=== PATIENT | female | born 1965 | race Caucasian/White ===

== ENCOUNTER 2018-04-10 18:53 | Observation (INO) ==
[2018-04-10] MEDS ORDERED: Acetaminophen 325 MG Tablet PO PRN (23:29)
--- NOTE | 2018-04-10 23:35 | P.HPIM ---
History of Present Illness Primary Care Physician: UNKNOWN History of Present Illness: 52-year-old female with a history of anxiety, bipolar, chronic osteomyelitis left ankle, MRSA, DVT, hypertension and multiple admissions of altered mental status was a transfer from [facility] for further evaluation of recurrent encephalopathy. Admitted on 04/09/18. According to the [place] records patient was at her local half-way and staff found her crawling on the floor in her own feces and urine. She was uncooperative and combative at this time and was sent to the ER. Prior to arrival had the ED she was found with syringes in her purse at the local half-way. CT of the head was completed and revealed mild sinus, no acute abnormalities. She is currently being treated for chronic osteomyelitis to the left ankle for 6 weeks of antibiotics that is due to and on 04/25/18 and she is being treated with vancomycin and cefepime. On admission patient's labs WBC 5.3, sodium 152, potassium 4.3, chloride 1 CO2 15, BUN 9, glucose 139, troponin 0.01, urine tox screens positive for oxycodone, alcohol level less than 1. UA negative. Upon examination she is oriented x 3, states she is given oxycodone from the half-way for pain for her recently diagnosed DVT in right upper extremity. She does not know why she was brought to the ED, she thought it was due to the dvt. She denies any chest pain, sob, fever or chills. Inpatient Certification: I certify that the inpatient services were ordered in accordance with Medicare regulations governing the order. This includes certification that hospital inpatient services are reasonable and necessary and in the case of services not specified as inpatient-only under 42 CFR 419.22(n), that they are appropriately provided as inpatient services in accordance to with the 2-midnight benchmark under 43 CFR 412.3(e) Estimated Total Length of Stay (Days): 2 Plans for Post Hospital Care: [facility] - Medical History Medical History: Medical History (Last Reviewed 04/11/18 @ 01:37 by POP Farrell) Anxiety Bipolar 1 disorder DVT (deep venous thrombosis) Osteomyelitis - Surgical History Surgical History: Surgical History (Last Reviewed 04/11/18 @ 01:36 by POP Farrell) History of appendectomy History of cholecystectomy History of nephrectomy - Family History Family History: Family History (Last Reviewed 04/11/18 @ 01:37 by POP Farrell) Grandparent Psychiatric diagnosis Medications and Allergies Allergies Allergy/AdvReac Type Severity Reaction Status Date / Time heparin Allergy Itching Verified 04/10/18 23:36 morphine Allergy Anaphylaxis Verified 04/10/18 23:36 Exam Vital signs: Intake & Output 04/10/18 04/10/18 04/11/18 06:59 18:59 06:59 Weight 66.7 kg Other: Weight On Admission 66.7 kg Narrative: GENERAL: This is a well-nourished, well-developed patient, in no apparent distress. CARDIOVASCULAR: Regular rate and rhythm without murmurs, gallops, or rubs. RESPIRATORY: Clear to auscultation. Breath sounds equal bilaterally. No wheezes , rales, or rhonchi. GASTROINTESTINAL: Abdomen soft, non-tender, nondistended. Normal active bowel sounds MUSCULOSKELETAL: Extremities without clubbing, cyanosis, or edema. NEURO: Alert & Oriented x3 to person, place, time. Moves all ext x4 Results - Labs CBC & Chem 7: 04/11/18 01:29 04/11/18 01:29 Caprini VTE Risk Assessment Caprini VTE Risk Assessment: Moderate/High Risk (score >= 2) Caprini Risk Assessment Model: Point Value = 1 Point Value = 2 Point Value = 3 Point Value = 5 Age 41-60 Minor surgery BMI > 25 kg/m2 Swollen legs Varicose veins or History of unexplained or recurrent spontaneous Oral contraceptives or hormone replacement Sepsis (< 1 month) Serious lung disease, including pneumonia (< 1 month) Abnormal pulmonary function Acute myocardial infarction Congestive heart failure (< 1 month) History of inflammatory bowel disease Medical patient at bed rest Age 61-74 Arthroscopic surgery Major open surgery (> 45 min) Laparoscopic surgery (> 45 min) Malignancy Confined to bed (> 72 hours) Immobilizing plaster cast Central venous access Age >= 75 History of VTE Family history of VTE Factor V Leiden Prothrombin [id number] Lupus anticoagulant Anticardiolipin antibodies Elevated serum homocysteine Heparin-induced thrombocytopenia Other congenital or acquired thrombophilia Stroke (< 1 month) Elective arthroplasty Hip, pelvis, or leg fracture Acute spinal cord injury (< 1 month) Prophylaxis Regimen: Total Risk Factor Score Risk Level Prophylaxis Regimen 0-1 Low Early ambulation 2 Moderate Order ONE of the following: *Sequential Compression Device (SCD) *Heparin 5000 units SQ BID 3-4 Higher Order ONE of the following medications: *Heparin 5000 units SQ TID *Enoxaparin/Lovenox 40 mg SQ daily (WT < 150 kg, CrCl > 30 mL/min) *Enoxaparin/Lovenox 30 mg SQ daily (WT < 150 kg, CrCl > 10-29 mL/min) *Enoxaparin/Lovenox 30 mg SQ BID (WT < 150 kg, CrCl > 30 mL/min) AND/OR *Sequential Compression Device (SCD) 5 or more Highest Order ONE of the following medications: *Heparin 5000 units SQ TID (Preferred with Epidurals) *Enoxaparin/Lovenox 40 mg SQ daily (WT < 150 kg, CrCl > 30 mL/min) *Enoxaparin/Lovenox 30 mg SQ daily (WT < 150 kg, CrCl > 10-29 mL/min) *Enoxaparin/Lovenox 30 mg SQ BID (WT < 150 kg, CrCl > 30 mL/min) AND *Sequential Compression Device (SCD) Assessment and Plan - Plan 52-year-old female with a history of anxiety, bipolar, chronic osteomyelitis left ankle, MRSA, DVT, hypertension and multiple admissions of altered mental status was a transfer from [facility] for further evaluation of recurrent encephalopathy. Encephalopathy, acute, currently resolved Head CT reviewed and shows no acute abnormalities -MRI, EGG ordered -Consult neurology for evaluation -Neuro checks -PT eval Anxiety/bipolar -Resume home medications BuSpar -Consult psychiatry if needed Hypertension, chronic -Resume home amlodipine, monitor vitals Osteomyelitis, chronic -Continue IV vancomycin q16hrs with pharmacy consult and cefepime 2gm q12h until 04/25/18 DVT, recently diagnosed -Right upper extremity -Resume home eliquis -Tramadol for pain DVT prophylaxis: Isaac Discussed Condition With: Patient and RN
[2018-04-10] MEDS ORDERED: Vancomycin Consult Pharmacy OTHER PRN ×2 (23:45→23:55)
[2018-04-11] MEDS ORDERED: Vancomycin Inj 1 GM/200 ML PIGGYBACK IV.SIG SCH
[2018-04-11] MEDS ORDERED: Vancomycin Inj 1,750 MG in Sodium Chlor 0.9% Inj 500 ML IV.SIG ONE (01:00)
[2018-04-11] MEDS: Sod Chloride 0.9% Inj 1,000 ML IV.CONT SCH ×3 (01:41→20:36)
[2018-04-11 01:47] LABS: Baso # (Auto) 0.1 th/mm3 (0.0-0.2); Baso % (Auto) 1.9 % (0.0-2.0); Eos # (Auto) 0.1 th/mm3 (0.0-0.4); Eos % (Auto) 1.1 % (0.0-4.0); Hematocrit 26.6 % (35.0-46.0); Hemoglobin 8.2 gm/dL (11.6-15.3); Lymph # (Auto) 1.4 th/mm3 (1.0-4.8); Lymph % (Auto) 26.2 % (9.0-44.0); Mean Corpuscular Hemoglobin 23.6 pg (27.0-34.0); Mean Corpuscular Volume 76.9 fL (80.0-100.0); Mean Platelet Volume 8.3 fL (7.0-11.0); Mono # (Auto) 0.5 th/mm3 (0.0-0.9); Neut # (Auto) 3.1 th/mm3 (1.8-7.7); Neut % (Auto) 60.8 % (16.0-70.0); Platelet Count 187 th/mm3 (150-450); Red Blood Count 3.45 mil/mm3 (4.00-5.30); Red Cell Distribution Width 18.3 % (11.6-17.2); White Blood Count 5.2 th/mm3 (4.0-11.0)
[2018-04-11 01:50] LABS: Mean Corpuscular HGB Conc 30.7 % (32.0-36.0)
[2018-04-11 02:10] LABS: Anion Gap 12 meq/L (5-15); Blood Urea Nitrogen 6 mg/dL (7-18); Calcium 8.4 mg/dL (8.5-10.1); Carbon Dioxide 22.5 meq/L (21.0-32.0); Chloride 111 meq/L (98-107); Glomerular Filtration Rate Greater Than 89 mL/min (>89); Glucose,Random 86 mg/dL (74-106); Sodium 145 meq/L (136-145)
[2018-04-11 02:15] LABS: Potassium 2.9 meq/L (3.5-5.1)
[2018-04-11 08:28] LABS: Baso # (Auto) 0.1 th/mm3 (0.0-0.2); Baso % (Auto) 1.4 % (0.0-2.0); Eos # (Auto) 0.1 th/mm3 (0.0-0.4); Eos % (Auto) 2.3 % (0.0-4.0); Hemoglobin 8.2 gm/dL (11.6-15.3); Lymph # (Auto) 1.2 th/mm3 (1.0-4.8); Mean Corpuscular HGB Conc 31.7 % (32.0-36.0); Mean Corpuscular Hemoglobin 24.2 pg (27.0-34.0); Mean Corpuscular Volume 76.2 fL (80.0-100.0); Mean Platelet Volume 9.1 fL (7.0-11.0); Mono # (Auto) 0.5 th/mm3 (0.0-0.9); Mono % (Auto) 9.6 % (0.0-8.0); Neut # (Auto) 3.2 th/mm3 (1.8-7.7); Neut % (Auto) 63.7 % (16.0-70.0); Platelet Count 174 th/mm3 (150-450)
[2018-04-11] MEDS ORDERED: Potassium Chlor 20 mEq Premix 20 MEQ/100 ML PIGGYBACK IV.SIG ONE (09:00)
[2018-04-11 09:13] LABS: Albumin 3.2 g/dL (3.4-5.0); Anion Gap 9 meq/L (5-15); Aspartate Aminotransferase 22 U/L (15-37); Blood Urea Nitrogen 5 mg/dL (7-18); Calcium 8.7 mg/dL (8.5-10.1); Chloride 111 meq/L (98-107); Glomerular Filtration Rate Greater Than 89 mL/min (>89); Glucose,Random 77 mg/dL (74-106); Potassium 3.1 meq/L (3.5-5.1); Sodium 143 meq/L (136-145)
[2018-04-11 09:14] LABS: Alanine Aminotransferase 14 U/L (10-53)
[2018-04-11 09:16] LABS: Alkaline Phosphatase 92 U/L (45-117); Total Protein 7.3 g/dL (6.4-8.2)
[2018-04-11] MEDS: amLODIPine 10 MG Tablet PO SCH (09:24)
[2018-04-11 09:40] LABS: Platelet Estimate Normal (Normal); Platelet Morphology Clumped (Normal)
[2018-04-11] MEDS ORDERED: Magnesium Sulfate Inj 2 GM in Sodium Chlor 0.9% Inj 96 ML IV.SIG ONE (10:00)
[2018-04-11] MEDS ORDERED: Gadobutrol PF 7.5 MMOL/7.5 ML Vial (for RAD) IV.SIG ONE (10:07)
--- NOTE | 2018-04-11 10:16 | MB ---
cc: Marvin Mackenzie MD DATE: 04/11/2018 HISTORY OF PRESENT ILLNESS: A 52-year-old right-handed woman with a history of right kidney removal. Otherwise, she has been fairly healthy. She was over at [facility] with a history of generalized anxiety disorder, psych history. Past medical history of DVT, obesity, cholecystectomy, left nephrectomy, appendectomy, recurrent encephalopathy admitted for the third time in the past month change in mental status. Etiology was undetermined. She was at a correction. The staff found crawling on the floor in her own feces and urine earlier on 04/09/2018. She was uncooperative, combative, sent to the ER. She had some saline syringes found in her purse at [facility]. Urine drug screen only positive for the medication she has been taking. She was moaning, moving around in bed, would not engage in conversation that was meaningful. SHE WAS ALLERGIC TO MORPHINE AND HEPARIN. She does not take NSAIDS. She is not allergic, but she only has 1 kidney so tries to avoid those. She was moaning incoherently, intention tremors of the upper and lower extremities. She was being treated for possible osteomyelitis. She got Ativan in the ER. History of bipolar disorder, Crohn disease, osteomyelitis of left ankle 03/2018, brachial plexopathy of right upper extremity, rhabdomyolysis, listed as having a dementia. CT scan over at [facility] showed mild sinusitis, left ethmoid sinusitis. Her sodium was 152. Urine drug screen positive for oxycodone. She was noted to have a history of psychosis. History of MRSA is noted. It is unclear to me why she was transferred to [facility]. MEDICATIONS: She is on BuSpar 7.5 b.i.d., Eliquis 5 b.i.d., gabapentin 300 t.i.d., omeprazole, tramadol 100 q.6 hours p.r.n., amlodipine, cefepime, vancomycin, Florastor 250 b.i.d., Zoloft 50 a day. REVIEW OF SYSTEMS: The patient denied any hypertension, diabetes, hypercholesterolemia, ND, stent, angioplasty, AFib, Coumadin, hepatic or pulmonary disease, thyroid disease, lupus, ulcer, cancer, seizure, or stroke. SOCIAL HISTORY: She is not a smoker or drinker, lives with her mother. FAMILY HISTORY: Positive for cancer in her mother, negative for seizure or stroke. PAST MEDICAL HISTORY: As above. PHYSICAL EXAMINATION: VITAL SIGNS: Afebrile, 92, 156/93. She has not been running a fever here. NECK: There were no carotid bruits. HEART: Regular rate and rhythm. I did not detect a murmur. NEUROLOGIC: She is awake and alert. She knows the month and the year. Pupils are equal. Visual sterling are full. Extraocular movements intact without nystagmus. Face is symmetric with normal sensation. Tongue was midline. There is no drift. He had normal strength in upper and lower extremities bilaterally. DTRs are absent throughout. Toes withdrew bilaterally. Her tone is normal throughout. There is no ankle clonus. Pinprick is intact throughout bilateral upper and lower extremities and face. She is not ataxic on [id number]. Follows commands well. She has some scabs on her knee. She says that was from changing her bird cages at home. She denies a fall. She denies a headache. LABORATORY DATA: CBC shows anemia with hematocrit of 26, otherwise normal. Her BMP: Potassium of 3.1, otherwise the sodium down to 143. Creatinine is normal. LFTs normal. Albumin 3.2. She had some other labs from [facility]. Coags were essentially normal. LFTs were normal. CPK was normal. UA was negative. Urine drug screen positive for narcotics only. IMPRESSION AND PLAN: She actually looks fairly well neurologically at this time. She has some shaking in her legs just due to some nervousness with her history of anxiety and psych disease. An MRI and EEG have been ordered. We will check some additional blood work. I would stop her tramadol as it can cause seizures. I suspect we probably will not find too much here neurologically. I will be following her with you in the hospital. MD ANIKA Sutherland/wendie , 09:47 AM , 09:56 AM
--- NOTE | 2018-04-11 10:45 | MR ---
EXAM DATE: 04/11/2018 9:13 AM EDT AGE/SEX: 52 years / Female INDICATIONS: Altered mental status. CLINICAL DATA: This is the patient's subsequent encounter. Patient reports that signs and symptoms h ave been present for 2 days and indicates a pain score of 0/10. MEDICAL/SURGICAL HISTORY: Hypertension. Nephrectomy, right. Hysterectomy. Left ankle repair. Scoliosis surgery. Bowel resection. COMPARISON: No prior exams available for comparison. TECHNIQUE: Multiplanar, multisequence examination of the brain was performed without and with 6.5 ml Gadavist (gadobutrol) contrast as a single exam dose. FINDINGS: Cerebrum: The ventricles are normal for age. No evidence of midline shift, mass lesion, hemorrhage or acute infarction. No extraaxial fluid collections are seen. The pituitary gland and suprasellar cistern are normal in configuration. White Matter: No significant signal abnormalities are seen in the white matter. Posterior Fossa: The cerebellum and brainstem are intact. The 4th ventricle is midline. The cerebel lopontine angle is unremarkable. The cerebellar tonsils are normal in position. Diffusion Imaging: No focal areas of restricted diffusion are seen. No evidence of acute infarction . Extracranial: The visualized portions of the orbits and paranasal sinuses are unremarkable. Post Contrast: No abnormal areas of parenchymal or dural enhancement. No evidence of blood-brain ba rrier breakdown. CONCLUSION: 1. Senescent changes with minimal periventricular ischemic white matter demyelination. 2. No acute abnormality. Specifically, no acute infarction, hemorrhage or mass. Electronically signed by: Abdi Le MD 04/11/2018 10:43 AM EDT
--- NOTE | 2018-04-11 12:20 | US ---
EXAM DATE: 04/11/2018 12:00 AM EDT AGE/SEX: 52 years / Female INDICATIONS: Slurred speech. CLINICAL DATA: This is the patient's initial encounter. Patient reports that signs and symptoms have been present for 1 day and indicates a pain score of 10/10. MEDICAL/SURGICAL HISTORY: Hypertension. Anxiety. Bipolar. DVT. Oseomyelitis. Appendectomy. Ch olecystectomy. Nephrectomy. COMPARISON: No prior exams available for comparison. VELOCITY PARAMETERS: ICA/CCA Ratio: Right 1.1 , Left 0.98 ICA: Right 96 cm/sec, Left 83 cm/sec CCA: Right 84 cm/sec, Left 84 cm/sec ECA: Right 82 cm/sec, Left 69 cm/sec Vertebral: Right 56 cm/sec antegrade, Left 53 cm/sec antegrade FINDINGS: Right Carotid: No significant plaque is visualized.The waveforms are within normal limits. Left Carotid: No significant plaque is visualized. The waveforms are within normal limits. Other: None. CONCLUSION: No hemodynamically significant stenosis in either carotid artery Electronically signed by: Nithin Brown MD 04/11/2018 12:19 PM EDT
[2018-04-11 12:51] LABS: Free T4 (Free Thyroxine) 1.09 ng/dL (0.76-1.46); Vitamin B12 612 pg/mL (193-986)
--- NOTE | 2018-04-11 13:03 | P.PN ---
Subjective Interval history: Follow-up visit anxiety, bipolar, chronic osteomyelitis of the left ankle, MRSA , DVT of right upper extremity, HTN, chronic pain. Patient seen and examined today. States she is in severe pain complaining of 10/10 right upper extremity pain where she has a DVT. States she does not know why she was transferred to [facility]. She knows that she has some confusion when she came in to [facility]. Denies SOB/ dyspnea. Denies chest pain, palpitations, headaches, dizziness. Denies fevers, chills, n/v/d. Denies dysuria. Physical Exam Vital signs: Vital Signs 04/10/18 23:30 04/11/18 04:00 04/11/18 08:00 Temperature 98.3 F 98 F 97.2 F L Pulse Rate 92 H 74 75 Respiratory Rate 18 20 22 Blood Pressure 135/68 156/93 H 175/89 H Pulse Oximetry 99 97 98 04/11/18 09:32 04/11/18 12:00 Temperature 96.5 F L Pulse Rate 78 Respiratory Rate 16 23 Blood Pressure 152/79 H Pulse Oximetry 99 Intake & Output 04/10/18 04/11/18 04/11/18 18:59 06:59 18:59 Intake Total 877.5 / 877.5 Balance 877.5 / 877.5 Weight 66.7 kg Intake: IV 517.5 / 517.5 Vancomycin Inj 1,750 MG In NS 517.5 / 517.5 Inj 500 ML @ 250 mls/hr IV.SIG ONCE ONE Rx#:[id number] Oral 360 / 360 Other: # Voids 1 Weight On Admission 66.7 kg Narrative: GENERAL: This is a well-nourished, well-developed patient, in no apparent distress. SKIN: Warm and dry. Bilat Knee abrasion. Bilateral lower extremity discoloration but no erythema or edema. HEENT: Normocephalic. Pupils equal round and reactive. Nose without bleeding. Airway patent. NECK: Trachea midline. CARDIOVASCULAR: Regular rate and rhythm without murmurs, gallops, or rubs. RESPIRATORY: Clear to auscultation. Breath sounds equal bilaterally. No wheezes , rales, or rhonchi. GASTROINTESTINAL: Abdomen soft, non-tender, nondistended. Bowel Sounds normoactive x4. MUSCULOSKELETAL: Extremities without clubbing, cyanosis. Left upper extremity with PICC line. Right upper extremity trace edema, tenderness to palpate NEUROLOGICAL: Awake and alert. Oriented to time, place, person. No focal neuro deficit. Normal speech. Results - Labs CBC & Chem 7: 04/11/18 07:07 04/11/18 07:07 Laboratory Results - last 24 hr 04/11/18 04/11/18 04/11/18 01:29 01:29 01:29 WBC 5.2 RBC 3.45 L Hgb 8.2 L Hct 26.6 L MCV 76.9 L MCH 23.6 L MCHC 30.7 L RDW 18.3 H Plt Count 187 MPV 8.3 Prelim Diff (Auto) Neut % (Auto) 60.8 Lymph % (Auto) 26.2 Reagan % (Auto) 10.0 H Eos % (Auto) 1.1 Baso % (Auto) 1.9 Neut # (Auto) 3.1 Lymph # (Auto) 1.4 Reagan # (Auto) 0.5 Eos # (Auto) 0.1 Baso # (Auto) 0.1 WBC Differential . Diff Scan Differential Comment Auto diff final Platelet Estimate Platelet Morphology Sodium 145 Potassium 2.9 L* Chloride 111 H Carbon Dioxide 22.5 Anion Gap 12 BUN 6 L Creatinine 0.59 Estimated GFR Greater than 89 Random Glucose 86 Calcium 8.4 L Magnesium 1.6 Total Bilirubin AST ALT Alkaline Phosphatase Total Protein Albumin Vitamin B12 TSH Free T4 Rheumatoid Factor Scrn Rheumatoid Factor Titer 04/11/18 04/11/18 04/11/18 07:07 07:07 11:40 WBC 5.0 RBC 3.40 L Hgb 8.2 L Hct 26.0 L MCV 76.2 L MCH 24.2 L MCHC 31.7 L RDW 18.0 H Plt Count 174 MPV 9.1 Prelim Diff (Auto) Slide review pending Neut % (Auto) 63.7 Lymph % (Auto) 23.0 Reagan % (Auto) 9.6 H Eos % (Auto) 2.3 Baso % (Auto) 1.4 Neut # (Auto) 3.2 Lymph # (Auto) 1.2 Reagan # (Auto) 0.5 Eos # (Auto) 0.1 Baso # (Auto) 0.1 WBC Differential . Diff Scan Auto diff confirmed Differential Comment . Platelet Estimate Normal Platelet Morphology Clumped H Sodium 143 Potassium 3.1 L Chloride 111 H Carbon Dioxide 23.0 Anion Gap 9 BUN 5 L Creatinine 0.56 Estimated GFR Greater than 89 Random Glucose 77 Calcium 8.7 Magnesium Total Bilirubin 0.3 AST 22 ALT 14 Alkaline Phosphatase 92 Total Protein 7.3 Albumin 3.2 L Vitamin B12 612 TSH 2.720 Free T4 1.09 Rheumatoid Factor Scrn Negative Rheumatoid Factor Titer Not Reportable - Imaging Impressions Carotid Doppler Study 04/11/18 00:00 CONCLUSION: No hemodynamically significant stenosis in either carotid artery Head MRI 04/11/18 00:00 CONCLUSION: 1. Senescent changes with minimal periventricular ischemic white matter demyelination. 2. No acute abnormality. Specifically, no acute infarction, hemorrhage or mass. Assessment and Plan - Plan 52-year-old female with a history of anxiety, bipolar, chronic osteomyelitis left ankle, MRSA, DVT, hypertension and multiple admissions of altered mental status was a transfer from [facility] for further evaluation of recurrent encephalopathy. Per review of records, patient was at a local [facility] and staff found her crawling on the floor in her own feces and urine. Uncooperative and combative and was sent to the ED. She was found to have syringes in her purse at a local [facility]. U tox positive for oxycodone, alcohol level less than 1. Encephalopathy, acute -Head CT shows no acute abnormalities -MRI white matter demyelination. No acute abnormality. Specifically, no acute infarction, hemorrhage or mass -Neurology following, appreciate recommendations. DC tramadol for now secondary to can induce seizure -Neuro checks -Neuro status has improved since admission. Chronic pain RUE pain -Patient appears to have drug-seeking behavior, complaints of pain right upper extremity, adamantly asking what kind of medication she is on for pain. She was asking what kind of medication she is going to get for her pain. [employer] Prescription Drug Monitoring Database has been queried and verified prior to prescribing the controlled substance.. It appears that patient has been moving from one doctor to the other getting pain medication from different doctors, she would get the same medication from one doctor for about 3-4 tablets only. Her pain medication is coming from various doctors [place], to [place], to [place], to [place], to [place], to [place]. -Patient has been given oxycodone 5mg for her pain for her DVT in the right upper extremity. Might have contributed to her encephalopathy -We will give patient [place] q8hrs, if increase sedation will take her off it. Bowel regimen. -Toradol x1 -Patient will not get any narcotics on discharge DVT, recently diagnosed Right upper extremity -Resume eliquis -Tylenol, Oxford for pain as needed Anxiety/bipolar -Resume home medications BuSpar -Consult psychiatry if needed Hypertension, chronic -Resume home amlodipine, monitor vitals Osteomyelitis, chronic -Continue IV vancomycin q16hrs with pharmacy consult and cefepime 2gm q12h until 04/25/18 DVT prophylaxis, Eliquis Code Status: Full code Discussed Condition With: Patient, nursing Discharge Planning: Plan to DC home when cleared by urology. Patient appears to be back at baseline. Will arrange to go back to [facility].
[2018-04-11] MEDS ORDERED: Bisacodyl 10 MG Supp RECTAL PRN (13:10)
[2018-04-11] MEDS ORDERED: Vancomycin Inj 1,250 MG in Sodium Chlor 0.9% Inj 250 ML IV.SIG SCH (14:00)
[2018-04-11] MEDS ORDERED: Sodium Chloride 0.9% 2 ML Flush PRN IV.FLUSH (15:03)
--- NOTE | 2018-04-11 16:04 | MG ---
cc: Hanny Sánchez MD EEG #[id number] REFERRING PHYSICIAN: . Photic stimulation. EEG is awake, drowsy, asleep. MRI not listed, transferred from [place] for evaluation of encephalopathy, found crawling on the floor in her own feces and urine, combative, found with syringes in her purse at a local [facility]. History of anxiety, bipolar DVT, MRSA, Ultram and Norvasc. DESCRIPTION OF RECORD: The patient has overall background slowing of 4-5 Hz. Quite a bit of myogenic artifact noted, especially in the frontal sterling. Photic stimulation shows driving response. IMPRESSION: Abnormal EEG due mild to moderate slowing of background consistent with what looks like an encephalopathic process without any epileptiform features. Clinical correlation. MD VALENTINA Sanders/jadon/yves , 03:05 PM , 03:13 PM
[2018-04-11] MEDS: Vancomycin Inj 1,250 MG in Sodium Chlor 0.9% Inj 250 ML IV.SIG SCH (20:38)
[2018-04-11 22:03] VITALS: RESP 18
[2018-04-12] MEDS: Sodium Chloride 0.9% 2 ML Flush BID IV.FLUSH SCH ×3 (03:36→21:18)
[2018-04-12] MEDS: Senna/Docusate Sodium 8.6/50 MG Tablet PO SCH ×3 (03:36→21:18)
[2018-04-12] MEDS: Sod Chloride 0.9% Inj 1,000 ML IV.CONT SCH ×3 (03:41→21:17)
--- NOTE | 2018-04-12 08:01 | P.PNNEU ---
Subjective Active Medications: Active Medications Acetaminophen (Tylenol) 650 mg PO Q4H PRN PRN Reason: Temp > 100.4, WILLS, Pain 1-4 Hydrocodone Bitart/Acetaminophen ([place] 5/325) 1 tab PO Q8H PRN PRN Reason: Pain 6-10 Last Admin: 04/12/18 05:23 Dose: 1 tab Al Hydroxide/Mg Hydroxide (Milk Of Magnesia Liq) 30 ml PO Q12H PRN PRN Reason: Mild Constipation Amlodipine Besylate (Norvasc) 10 mg PO DAILY [facility] Last Admin: 04/11/18 09:24 Dose: 10 mg Apixaban (Eliquis) 5 mg PO BID [facility] Last Admin: 04/11/18 20:39 Dose: 5 mg Bisacodyl (Dulcolax Supp) 10 mg RECTAL DAILY PRN PRN Reason: SEVERE CONSITIPATION Buspirone HCl (Buspar) 7.5 mg PO BID [facility] Last Admin: 04/11/18 20:38 Dose: 7.5 mg Sodium Chloride (Ns Inj) 1,000 mls @ 100 mls/hr IV.CONT .Q10H [facility] Last Admin: 04/12/18 03:41 Dose: 100 mls/hr Cefepime HCl 2,000 mg/ Sodium (Chloride) 100 mls @ 200 mls/hr IV.SIG Q12H [facility] Last Admin: 04/11/18 21:56 Dose: 200 mls/hr Vancomycin HCl 1,250 mg/ (Sodium Chloride) 262.5 mls @ 250 mls/hr IV.SIG Q12H [facility] Last Infusion: 04/11/18 21:58 Dose: Infused Lactulose (Lactulose Liq) 30 ml PO DAILY PRN PRN Reason: SEVERE CONSITIPATION Miscellaneous (Pill Splitter) 0 each OTHER UNSCH PRN PRN Reason: TO SPLIT PILLS Miscellaneous Information ([facility] Ordered Lab Info) 0 each OTHER ONCE ONE Stop: 04/13/18 07:46 Ondansetron HCl (Zofran Inj) 4 mg IV.PUSH Q6H PRN PRN Reason: NAUSEA OR VOMITING Last Admin: 04/12/18 03:39 Dose: 4 mg Pharmacy Profile Note (Vancomycin Consult Pharmacy) 1 each OTHER UNSCH PRN PRN Reason: Pharmacy to dose Senna/Docusate Sodium (Marybel-Colace) 1 tab PO BID [facility] Last Admin: 04/12/18 03:36 Dose: Not Given Sennosides (Senokot) 17.2 mg PO Q12H PRN PRN Reason: Moderate Constipation Sodium Chloride (Ns Flush) 2 ml IV.FLUSH BID [facility] Last Admin: 04/12/18 03:36 Dose: Not Given Sodium Chloride (Ns Flush) 2 ml IV.FLUSH PRN PRN PRN Reason: FLUSH AFTER USING IV ACCESS Allergies/Adverse Reactions: Allergies Allergy/AdvReac Type Severity Reaction Status Date / Time heparin Allergy Itching Verified 04/10/18 23:36 morphine Allergy Anaphylaxis Verified 04/10/18 23:36 Physical Exam Vital signs: Vital Signs 04/11/18 09:32 04/11/18 12:00 04/11/18 16:00 Temperature 96.5 F L 98.2 F Pulse Rate 78 78 Respiratory Rate 16 23 22 Blood Pressure 152/79 H 168/86 H Pulse Oximetry 99 98 04/11/18 20:00 04/11/18 23:59 04/12/18 00:00 Temperature 98.2 F 97.9 F Pulse Rate 92 H 76 93 H Respiratory Rate 18 18 Blood Pressure 162/64 H 154/76 H Pulse Oximetry 98 97 04/12/18 04:00 04/12/18 04:03 Temperature 97.6 F Pulse Rate 92 H 95 H Respiratory Rate 18 Blood Pressure 176/90 H Pulse Oximetry 94 L Intake & Output 04/11/18 04/12/18 04/12/18 18:59 06:59 18:59 Intake Total 2059 1742.5 / 1742.5 Balance 2059 1742.5 / 1742.5 Intake: IV 1100 / 1100 1262.5 / 1262.5 NS Inj 1,000 ML @ 100 mls/hr IV 1000 / 1000 1000 / 1000 .CONT .Q10H [facility] Rx#:[id number] KCl 20 mEq Premix Inj 20 meq In 100 / 100 100 ml @ 50 mls/hr IV.SIG ONCE ONE Rx#:[id number] Vancomycin Inj 1,250 MG In NS 262.5 / 262.5 Inj 250 ML @ 250 mls/hr IV.SIG Q12H [facility] Rx#:[id number] Oral 960 / 960 480 / 480 Other: # Voids 5 # Incontinent Voids 4 Narrative: awake alert nl speech moving all c/o nausea very nervous Objective Laboratory Results - last 24 hr 04/11/18 04/11/18 04/11/18 07:07 07:07 11:40 WBC 5.0 RBC 3.40 L Hgb 8.2 L Hct 26.0 L MCV 76.2 L MCH 24.2 L MCHC 31.7 L RDW 18.0 H Plt Count 174 MPV 9.1 Prelim Diff (Auto) Slide review pending Neut % (Auto) 63.7 Lymph % (Auto) 23.0 [place] % (Auto) 9.6 H Eos % (Auto) 2.3 Baso % (Auto) 1.4 Neut # (Auto) 3.2 Lymph # (Auto) 1.2 [place] # (Auto) 0.5 Eos # (Auto) 0.1 Baso # (Auto) 0.1 WBC Differential . Diff Scan Auto diff confirmed Differential Comment . Platelet Estimate Normal Platelet Morphology Clumped H ESR Sodium 143 Potassium 3.1 L Chloride 111 H Carbon Dioxide 23.0 Anion Gap 9 BUN 5 L Creatinine 0.56 Estimated GFR Greater than 89 Random Glucose 77 Calcium 8.7 Total Bilirubin 0.3 AST 22 ALT 14 Alkaline Phosphatase 92 Total Protein 7.3 Albumin 3.2 L Vitamin B12 612 TSH 2.720 Free T4 1.09 Rheumatoid Factor Scrn Negative Rheumatoid Factor Titer Not Reportable 04/11/18 17:00 WBC RBC Hgb Hct MCV MCH MCHC RDW Plt Count MPV Prelim Diff (Auto) Neut % (Auto) Lymph % (Auto) [place] % (Auto) Eos % (Auto) Baso % (Auto) Neut # (Auto) Lymph # (Auto) [place] # (Auto) Eos # (Auto) Baso # (Auto) WBC Differential Diff Scan Differential Comment Platelet Estimate Platelet Morphology ESR 16 Sodium Potassium Chloride Carbon Dioxide Anion Gap BUN Creatinine Estimated GFR Random Glucose Calcium Total Bilirubin AST ALT Alkaline Phosphatase Total Protein Albumin Vitamin B12 TSH Free T4 Rheumatoid Factor Scrn Rheumatoid Factor Titer Review/Management - Review/Management Plan: imp severe anxiety and maybe u should have psych see her for rx of this mri and us and eeg and labs so far neg and neurowise can dc
--- NOTE | 2018-04-12 08:57 | P.DS ---
Date of admission: 04/10/18 22:10 Primary care physician: UNKNOWN Attending physician on discharge: Marco Pairs Anticipated date of discharge: 04/12/18 Brief History from admission: 52-year-old female with a history of anxiety, bipolar, chronic osteomyelitis left ankle, MRSA, DVT, hypertension and multiple admissions of altered mental status was a transfer from [facility] for further evaluation of recurrent encephalopathy. Admitted on 04/09/18. According to the [facility] records patient [facility] local [facility] and staff found her crawling on the floor in her own feces and urine. She was uncooperative and combative at this time and was sent to the ER. Prior to arrival had the ED she was found with syringes in her purse at the local [facility]. CT of the head was completed and revealed mild sinus, no acute abnormalities. She is currently being treated for chronic osteomyelitis to the left ankle for 6 weeks of antibiotics that is due to and on 04/25/18 and she is being treated with vancomycin and cefepime. On admission patient's labs WBC 5.3, sodium 152, potassium 4.3, chloride 1 CO2 15, BUN 9, glucose 139, troponin 0.01, urine tox screens positive for oxycodone, alcohol level less than 1. UA negative. Upon examination she is oriented x 3, states she is given oxycodone from the [facility] for pain for her recently diagnosed DVT in right upper extremity. She does not know why she was brought to the ED, she thought it was due to the dvt. She denies any chest pain, sob, fever or chills. Patient update on day of discharge: Follow-up visit anxiety, bipolar, chronic osteomyelitis of the right ankle MRSA , DVT of right upper extremity, HTN, chronic pain. Patient seen and examined today. Reports doing a lot better. Forgetful but coherent. Answers questions and follows commands. Pain is manageable. Denies SOB/ dyspnea. Denies chest pain, palpitations, headaches, dizziness. Denies fevers, chills, n/v/d. Denies dysuria. DS: Diagnosis - Discharge Diagnosis (1) Toxic encephalopathy Status: Acute (2) Narcotic induced mental alteration Status: Acute DS: Medications - Discharge Medications Prescriptions: paroxetine HCl 20 mg PO DAILY #30 tab DS: Summary Hospital Course: 52-year-old female with a history of anxiety, bipolar, chronic osteomyelitis left ankle, MRSA, DVT, hypertension and multiple admissions of altered mental status was a transfer from [facility] for further evaluation of recurrent encephalopathy. Per review of records, patient was at a local [facility] and staff found her crawling on the floor in her own feces and urine. Uncooperative and combative and was sent to the ED. She was found to have syringes in her purse at a local [facility]. U tox positive for oxycodone, alcohol level less than 1. And found to have acute encephalopathy, possibly secondary to narcotic use. Patient was on oxycodone 5 mg at the nursing facility which probably oversedated the patient. Head CT shows no acute abnormalities. MRI white matter demyelination. No acute abnormality. Specifically, no acute infarction, hemorrhage or mass. Neurology has seen the patient. Does not think there is any neurological problem. Possibly more of anxiety, will need psychiatrist in the outpatient setting. Has cleared the patient for discharge. Neurologist also has discontinued tramadol use secondary to increase possibility of induction of seizure. Patient has chronic pain, right upper extremity pain secondary to DVT and chronic pain secondary to chronic osteomyelitis. She appears to have drug-seeking behavior, complaints of pain right upper extremity, adamantly asking what kind of medication she is on for pain. She was asking what kind of medication she is going to get for her pain. [email or web address] Prescription Drug Monitoring Database has been queried and verified prior to prescribing the controlled substance.. It appears that patient has been moving from one doctor to the other getting pain medication from different doctors, she would get the same medication from one doctor for about 3-4 tablets only. Her pain medication is coming from various doctors [place], to [place], to [place], to [place], to [place], to [place]. Patient was given oxycodone for her DVT in the right upper extremity and chronic pain, suspected to have contributed to her toxic encephalopathy. She was given Toradol. She was given [place] 5/325 every 8 hours for pain and has managed the pain well. [facility] can provide medications for discharge to her retirement facility. For her right upper extremity DVT she will continue her Eliquis. Patient also has anxiety disorder, bipolar, she will resume her BuSpar medication, we have added Paxil medication for her to continue. Her hypertension has been treated with amlodipine. She will continue her IV antibiotics that was given to her from [facility] which is vancomycin, cefepime until per review of records. This is all been discussed with patient. Verbalized understanding. Clinically stable for discharge to [facility]. - Time Spent with Patient Total time spent providing and/or coordinating discharge services: Greater than 30 minutes - Quality: VTE Deep Vein Thrombosis/Pulmonary Embolism Present on Admission: Yes Exam Vital signs: Vital Signs 04/11/18 09:32 04/11/18 12:00 04/11/18 16:00 Temperature 96.5 F L 98.2 F Pulse Rate 78 78 Respiratory Rate 16 23 22 Blood Pressure 152/79 H 168/86 H Pulse Oximetry 99 98 04/11/18 20:00 04/11/18 23:59 04/12/18 00:00 Temperature 98.2 F 97.9 F Pulse Rate 92 H 76 93 H Respiratory Rate 18 18 Blood Pressure 162/64 H 154/76 H Pulse Oximetry 98 97 04/12/18 04:00 04/12/18 04:03 Temperature 97.6 F Pulse Rate 92 H 95 H Respiratory Rate 18 Blood Pressure 176/90 H Pulse Oximetry 94 L Intake & Output 04/11/18 04/12/18 04/12/18 18:59 06:59 18:59 Intake Total 2059 / 2059 1742.5 / 1742.5 Balance 2059 1742.5 / 1742.5 Intake: IV 1100 / 1100 1262.5 / 1262.5 NS Inj 1,000 ML @ 100 mls/hr IV 1000 / 1000 1000 / 1000 .CONT .Q10H [facility] Rx#:[id number] KCl 20 mEq Premix Inj 20 meq In 100 / 100 100 ml @ 50 mls/hr IV.SIG ONCE ONE Rx#:[id number] Vancomycin Inj 1,250 MG In NS 262.5 / 262.5 Inj 250 ML @ 250 mls/hr IV.SIG Q12H [facility] Rx#:[id number] Oral 960 / 960 480 / 480 Other: # Voids 5 # Incontinent Voids 4 Narrative: GENERAL: This is a well-nourished, well-developed patient, in no apparent distress. SKIN: Warm and dry. Bilat Knee abrasion. Bilateral lower extremity discoloration but no erythema or edema. HEENT: Normocephalic. Pupils equal round and reactive. Nose without bleeding. Airway patent. NECK: Trachea midline. CARDIOVASCULAR: Regular rate and rhythm without murmurs, gallops, or rubs. RESPIRATORY: Clear to auscultation. Breath sounds equal bilaterally. No wheezes , rales, or rhonchi. GASTROINTESTINAL: Abdomen soft, non-tender, nondistended. Bowel Sounds normoactive x4. MUSCULOSKELETAL: Extremities without clubbing, cyanosis. Left upper extremity with PICC line. Right upper extremity trace edema, tenderness to palpate. Right lower ext ankle area open wound pink wound bed, no erythema in the surrounding area, no fluctuant. NEUROLOGICAL: Awake and alert. Oriented to place, person. No focal neuro deficit. Normal speech. Results Procedures completed during hospitalization: None Labs on day of discharge: Labs from last 24 hours 04/12/18 04/12/18 04/12/18 08:28 08:28 08:28 WBC Pending RBC Pending Hgb Pending Hct Pending Plt Count Pending WBC Differential Pending Diff Scan Differential Comment Pending Platelet Estimate Platelet Morphology ESR Sodium Pending Potassium Pending Chloride Pending Carbon Dioxide Pending Anion Gap Pending BUN Pending Creatinine Pending Estimated GFR Random Glucose Pending Calcium Pending Total Bilirubin AST ALT Alkaline Phosphatase Total Protein Albumin Thiamine Pending Vitamin B12 Methylmalonic Acid Pending TSH Free T4 Rheumatoid Factor Scrn Rheumatoid Factor Titer STONE Screen RPR 04/12/18 04/11/18 04/11/18 08:28 17:00 11:40 WBC RBC Hgb Hct Plt Count WBC Differential Diff Scan Differential Comment Platelet Estimate Platelet Morphology ESR 16 Sodium Potassium Chloride Carbon Dioxide Anion Gap BUN Creatinine Estimated GFR Random Glucose Calcium Total Bilirubin AST ALT Alkaline Phosphatase Total Protein Albumin Thiamine Vitamin B12 612 Methylmalonic Acid TSH 2.720 Free T4 1.09 Rheumatoid Factor Scrn Negative Rheumatoid Factor Titer Not Reportable STONE Screen Pending RPR Pending 04/11/18 04/11/18 07:07 07:07 WBC RBC Hgb Hct Plt Count WBC Differential . Diff Scan Auto diff confirmed Differential Comment Platelet Estimate Normal Platelet Morphology Clumped H ESR Sodium 143 Potassium 3.1 L Chloride 111 H Carbon Dioxide 23.0 Anion Gap 9 BUN 5 L Creatinine 0.56 Estimated GFR Greater than 89 Random Glucose 77 Calcium 8.7 Total Bilirubin 0.3 AST 22 ALT 14 Alkaline Phosphatase 92 Total Protein 7.3 Albumin 3.2 L Thiamine Vitamin B12 Methylmalonic Acid TSH Free T4 Rheumatoid Factor Scrn Rheumatoid Factor Titer STONE Screen RPR - Impressions ITS Impressions Carotid Doppler Study 04/11/18 00:00 CONCLUSION: No hemodynamically significant stenosis in either carotid artery Head MRI 04/11/18 00:00 CONCLUSION: 1. Senescent changes with minimal periventricular ischemic white matter demyelination. 2. No acute abnormality. Specifically, no acute infarction, hemorrhage or mass. Discharge Plan - Discharge Disposition Patient Disposition: Disch To Another Hospital - Discharge Condition Condition: Stable - Discharge Order Discharge Orders: Discharge Order (Routine); Ordered 04/12/18 Ordered By: Ligia Stevens - Physicians Team Primary Care Provider: UNKNOWN, Attending Provider: Marco Paris Other Providers: Marvin Cruz MD - Rxs /Orders / Referrals /Forms Prescriptions: New amlodipine [Norvasc] 10 mg Tablet 10 mg PO DAILY RF: 0 apixaban [Eliquis] 5 mg Tablet 5 mg PO BID RF: 0 buspirone 5 mg Tablet 7.5 mg PO BID RF: 0 cefepime 2 gram Recon Soln 2,000 mg IV Q12H RF: 0 paroxetine HCl 20 mg Tablet 20 mg PO DAILY Qty: 30 RF: 0 vancomycin 10 gram Recon Soln 1,250 mg IV Q12H RF: 0 Referrals: Psychiatrist [Outside] - See Instructions (Follow up in 7 Days. Schedule an appointment. Refer for anxiety.) UNKNOWN, [Primary Care Provider] - See Instructions (Follow up in 3-5 Days. Schedule an appointment.) - Post Discharge Care Plan Care Plan Goals: Your Health Problems: Goals to Promote Your Health: * To prevent worsening of your condition * To maintain your health at the optimal level Directions to Meet Your Goals: * Take your medications as prescribed * Follow your dietary instruction * Follow activity as directed * Keep your appointments as scheduled * Take your immunizations and boosters as scheduled * If your symptoms worsen call your PCP * If no PCP go to Urgent Care or Emergency Room Smoking is dangerous to your health. Avoid second hand smoke. You may reach the 24-hour crisis hotline for domestic abuse at .
[2018-04-12 09:09] LABS: Carbon Dioxide 21.2 meq/L (21.0-32.0); Potassium 3.7 meq/L (3.5-5.1)
[2018-04-12 09:20] LABS: Baso # (Auto) 0.1 th/mm3 (0.0-0.2); Baso % (Auto) 2.3 % (0.0-2.0); Eos # (Auto) 0.1 th/mm3 (0.0-0.4); Eos % (Auto) 2.1 % (0.0-4.0); Hemoglobin 9.5 gm/dL (11.6-15.3); Lymph # (Auto) 0.6 th/mm3 (1.0-4.8); Lymph % (Auto) 12.5 % (9.0-44.0); Mean Corpuscular HGB Conc 31.6 % (32.0-36.0); Mean Corpuscular Hemoglobin 23.7 pg (27.0-34.0); Mean Platelet Volume 8.4 fL (7.0-11.0); Mono # (Auto) 0.3 th/mm3 (0.0-0.9); Mono % (Auto) 5.1 % (0.0-8.0); Platelet Count 226 th/mm3 (150-450); Red Blood Count 3.99 mil/mm3 (4.00-5.30); Red Cell Distribution Width 17.8 % (11.6-17.2); White Blood Count 5.1 th/mm3 (4.0-11.0)
[2018-04-12] MEDS: amLODIPine 10 MG Tablet PO SCH (09:32)
[2018-04-12] MEDS: Vancomycin Inj 1,250 MG in Sodium Chlor 0.9% Inj 250 ML IV.SIG SCH ×2 (10:27→21:15)
[2018-04-12 14:18] LABS: Anti-Nuclear Antibody Screen Neg (Neg)
[2018-04-13] MEDS: Sod Chloride 0.9% Inj 1,000 ML IV.CONT SCH ×2 (02:13→18:04)
[2018-04-13] MEDS ORDERED: Pharmacy Ordered Lab Info OTHER ONE (07:45)
[2018-04-13] MEDS: Vancomycin Inj 1,250 MG in Sodium Chlor 0.9% Inj 250 ML IV.SIG SCH (08:49)
[2018-04-13] MEDS ORDERED: Senna/Docusate Sodium 8.6/50 MG Tablet PO PRN (09:05)
[2018-04-13] MEDS: Sodium Chloride 0.9% 2 ML Flush BID IV.FLUSH SCH (10:28)
[2018-04-13] MEDS: amLODIPine 10 MG Tablet PO SCH (10:28)
[2018-04-13] MEDS: Senna/Docusate Sodium 8.6/50 MG Tablet PO SCH (10:29)
--- NOTE | 2018-04-13 10:37 | P.PN ---
Subjective Interval history: Follow-up visit anxiety, bipolar, chronic osteomyelitis of the left ankle, MRSA , DVT of right upper extremity, HTN, chronic pain. Patient seen and examined today. States she has diarrhea, because she has Crohn's disease. She has this has been managing Crohn's in the outpatient. States she takes Imodium for it. Patient also reports she is very anxious and wanting to go home. States that her house is in foreclosure and in 3 days they are going to lock her house and they need to get her things out of there before her house gets locked out. Discussed and explained with patient extensively that signing out AMA could be detrimental to her health, discussed known risk including . She verbalized understanding and states that she would go back to [facility] if she would need care. Discussed we are not able to provide her with medications including IV antibiotics if she signed out AMA. She verbalized understanding. She understands that we are looking out for her health and well- being but states that if she continues to be at the hospital she would lose her house. Denies SOB/ dyspnea. Denies chest pain, palpitations, headaches, dizziness. Denies fevers, chills, n/v/d. Denies dysuria. Patient is supposed to transfer to [facility] yesterday for continued treatment of her IV antibiotics and will [facility]. However, tires declines transfer back to their hospital although the patient came from them. This is been also discussed with patient. Physical Exam Vital signs: Vital Signs 04/12/18 12:00 04/12/18 16:00 04/12/18 20:00 Temperature 98.4 F 98.1 F 98 F Pulse Rate 97 H 91 H 87 Respiratory Rate 18 18 18 Blood Pressure 187/92 H 162/76 H 160/84 H Pulse Oximetry 95 97 98 04/13/18 04:00 04/13/18 08:00 Temperature 98.8 F Pulse Rate 74 94 H Respiratory Rate 18 Blood Pressure 154/81 H Pulse Oximetry 99 Intake & Output 04/12/18 04/13/18 04/13/18 18:59 06:59 18:59 Intake Total 842.5 / 842.5 1804.5 / 1804.5 362.5 / 362.5 Balance 842.5 / 842.5 1804.5 / 1804.5 362.5 / 362.5 Weight 66.7 kg Intake: IV 362.5 / 362.5 1362.5 / 1362.5 362.5 / 362.5 NS Inj 1,000 ML @ 100 mls/hr IV 1000 / 1000 .CONT .Q10H [facility] Rx#:[id number] Maxipime Inj 2,000 MG In NS Inj 100 / 100 100 / 100 100 / 100 100 ML @ 200 mls/hr IV.SIG Q12H [facility] Rx#:[id number] Vancomycin Inj 1,250 MG In NS 262.5 / 262.5 262.5 / 262.5 262.5 / 262.5 Inj 250 ML @ 250 mls/hr IV.SIG Q12H [facility] Rx#:[id number] Oral 480 / 480 442 / 442 Other: # Voids 4 2 Date of Last Bowel Movement 04/12/18 # Bowel Movements 1 1 Narrative: GENERAL: This is a well-nourished, well-developed patient, in no apparent distress. SKIN: Warm and dry. Bilat Knee abrasion. Bilateral lower extremity discoloration but no erythema or edema. HEENT: Normocephalic. Pupils equal round and reactive. Nose without bleeding. Airway patent. NECK: Trachea midline. CARDIOVASCULAR: Regular rate and rhythm without murmurs, gallops, or rubs. RESPIRATORY: Clear to auscultation. Breath sounds equal bilaterally. No wheezes , rales, or rhonchi. GASTROINTESTINAL: Abdomen soft, non-tender, nondistended. Bowel Sounds normoactive x4. MUSCULOSKELETAL: Extremities without clubbing, cyanosis. Left upper extremity with PICC line. Right upper extremity trace edema, tenderness to palpate. Right lower ext ankle area open wound pink wound bed, no erythema in the surrounding area, no fluctuant. NEUROLOGICAL: Awake and alert. Oriented to time, place, person. No focal neuro deficit. Normal speech. Results - Labs CBC & Chem 7: 04/12/18 08:28 04/12/18 08:28 Laboratory Results - last 24 hr 04/12/18 04/13/18 08:28 08:47 Vancomycin Trough 22.2 H STONE Screen Neg RPR Nonreactive - Procedures None Assessment and Plan - Assessment (1) Toxic encephalopathy Code(s): G92 - Toxic encephalopathy Status: Acute (2) Narcotic induced mental alteration Code(s): F99 - Mental disorder, not otherwise specified Status: Acute - Plan 52-year-old female with a history of anxiety, bipolar, chronic osteomyelitis left ankle, MRSA, DVT, hypertension and multiple admissions of altered mental status was a transfer from [facility] for further evaluation of recurrent encephalopathy. Per review of records, patient was at a local alf and staff found her crawling on the floor in her own feces and urine. Uncooperative and combative and was sent to the ED. She was found to have syringes in her purse at a local alf. U tox positive for oxycodone, alcohol level less than 1. Toxic Encephalopathy, acute -Head CT shows no acute abnormalities -MRI white matter demyelination. No acute abnormality. Specifically, no acute infarction, hemorrhage or mass -Neurology following, appreciate recommendations. DC tramadol for now secondary to can induce seizure -Neuro checks -Neuro status has improved since admission. Chronic pain RUE pain -Patient appears to have drug-seeking behavior, complaints of pain right upper extremity, adamantly asking what kind of medication she is on for pain. She was asking what kind of medication she is going to get for her pain. [employer] Prescription Drug Monitoring Database has been queried and verified prior to prescribing the controlled substance. It appears that patient has been moving from one doctor to the other getting pain medication from different doctors, she would get the same medication from one doctor for about 3-4 tablets only. Her pain medication is coming from various doctors [place], to [place], to [place], to [place], to [place], to [place]. -Patient has been given oxycodone 5mg for her pain for her DVT in the right upper extremity. Might have contributed to her encephalopathy -[place] q8hrs, if increase sedation will take her off it. Bowel regimen. -Toradol x1 given -On norco. Improved pain and mental status. Discussed with patient extensively she cannot take more pain medications as it possibly contributed to encephalopathy. DVT, recently diagnosed Right upper extremity -Resume eliquis -Tylenol, [place] for pain as needed Anxiety/bipolar -Resume home medications BuSpar -Consult psychiatry if needed Hypertension, chronic -Resume home amlodipine, monitor vitals Osteomyelitis, chronic -Continue IV vancomycin q16hrs with pharmacy consult and cefepime 2gm q12h until 04/25/18 DVT prophylaxis, Eliquis Patient Maile Rodriguez has decided to leave the hospital against medical advice. This patient has the capacity to refuse care and understands the risks of leaving, including permanent disability and/or , and has had an opportunity to ask questions about his/her condition. The patient has been informed that he/she may return for care at any time, and follow up has been arranged/advised. Code Status: Full Code Discussed Condition With: Patient, nursing Discharge Planning: Plan to DC home when cleared by urology. Patient appears to be back at baseline. Will arrange to go back to [facility].
--- NOTE | 2018-04-13 11:12 | P.AMA ---
AMA Note - Diagnosis (1) Toxic encephalopathy (2) Narcotic induced mental alteration AMA Statement: Patient Maile Rodriguez has decided to leave the hospital against medical advice. This patient has the capacity to refuse care and understands the risks of leaving, including permanent disability and/or , and has had an opportunity to ask questions about his/her condition. The patient has been informed that he/she may return for care at any time, and follow up has been arranged/advised. Discharge Disposition: Against Medical Advice Patient Condition on Discharge: Stable
[2018-04-13] MEDS ORDERED: Lactobacillus Acidophilus/L. Spores Tablet PO SCH (13:00)
[2018-04-13 13:04] VITALS: BP 160/98; PULSE 92; TEMP 98.6; O2SAT 96
[2018-04-16 09:01] LABS: Methylmalonic Acid 0.21 nmol/mL (<=0.40)
== END 2018-04-13 14:04 | disposition left against medical advice (07) ==
LOC: INTOOBSV 22:10 → N05 22:10
PROVIDERS: ADMIT Hospitalist; ATTEND Hospitalist